=== PATIENT | female | born 1980 | race Caucasian/White ===

== ENCOUNTER 2019-11-27 03:59 | Emergency (ER) | payer OTHER ==
[~2019-11-27] VITALS: Ht 172.7 cm; Wt 81.6 kg
--- NOTE | 2019-11-27 04:10 | NUR ---
PT AAOX4. BIB SELF C/O RUQ PAIN X3 DAYS. PT STATING SHE HAS PAIN WHEN SHE INHALES. NO ACUTE DISTRESS NOTED. VSS.
[2019-11-27] MEDS ORDERED: HYDROMORPHONE 1 MG/1 ML DISP.SYRIN ONE (04:12)
[2019-11-27] MEDS ORDERED: ONDANSETRON HCL/PF 4 MG/2 ML VIAL ONE (04:16)
--- NOTE | 2019-11-27 04:16 | NUR ---
LINE ESTABLISHED ON RAC 20G, LABS DRAWN AND SENT TO LAB
[2019-11-27] MEDS ORDERED: IV NS 0.9% 1,000 ML IV ONE (04:30)
[2019-11-27] MEDS ORDERED: ONDANSETRON HCL/PF 4 MG/2 ML VIAL IV ONE (04:30)
[2019-11-27] MEDS ORDERED: HYDROMORPHONE INJ 0.5 MG/0.5 ML SYRINGE IV ONE (04:30)
--- NOTE | 2019-11-27 04:30 | NUR ---
AWAITING URINE SAMPLE
[2019-11-27 04:40] LABS: BASOPHILS % (AUTO) 0.3 % (0.0-2.0); EOSINOPHILS % (AUTO) 0.2 % (0.0-6.0); HEMATOCRIT 46 % (33-45); HEMOGLOBIN 15.4 g/dL (11.5-14.8); LYMPHOCYTES # (AUTO) 1.2 /CMM (0.8-4.8); MEAN CORPUSCULAR HGB CONC 34 g/dl (31.0-36.0); MEAN CORPUSCULAR VOLUME 90 fL (82-100); MONOCYTES # (AUTO) 0.9 /CMM (0.1-1.30); NEUTROPHILS % (AUTO) 85.5 % (43.0-81.0); PLATELET COUNT (AUTO) 303 /CMM (150-450); RED BLOOD CELL COUNT(AUTO) 5.05 MIL/uL (4.0-5.2); WHITE BLOOD COUNT (AUTO) 15.2 K/uL (4.3-11.0)
--- NOTE | 2019-11-27 04:51 | NUR ---
PT SIGNED WAIVER . RADIOLOGY MADE AWARE T OPROCEED WITH THE CT.
[2019-11-27 04:54] LABS: ALBUMIN 3.7 g/dL (3.4-5.0); BILIRUBIN,DIRECT 0.5 mg/dL (0.0-0.2); BILIRUBIN,TOTAL 1.9 mg/dL (0.2-1.0); CALCIUM, SERUM 8.9 mg/dL (8.5-10.1); CREATININE 0.9 mg/dL (0.6-1.3); POTASSIUM 3.8 mmol/L (3.5-5.1); TOTAL PROTEIN, SERUM 8.2 g/dL (6.4-8.2)
--- NOTE | 2019-11-27 04:59 | NUR ---
BROUGHT TO CT
--- NOTE | 2019-11-27 05:08 | NUR ---
BOUGHT BACK FROM CT
--- NOTE | 2019-11-27 05:17 | NUR ---
URINE COLLECTED AND SENT TO LAB
[2019-11-27 05:19] LABS: APPEARANCE,URINE Slightly Cloudy (CLEAR); BILIRUBIN,URINE SMALL (NEGATIVE); BLOOD, URINE Negative Ery/uL (NEGATIVE); COLOR,URINE Yellow (YELLOW); KETONES,URINE Negative (NEGATIVE); LEUKOCYTE ESTERASE ,URINE Small (NEGATIVE); NITRITE, URINE Negative (NEGATIVE); PROTEIN,URINE 100 mg/dl (NEGATIVE); UGLUCOSE Negative (NEGATIVE)
[2019-11-27 05:33] LABS: BACTERIA,URINE None seen /HPF (None Seen); RBC,URINE 81-100 /HPF (0-2); SQUAMOUS EPITHELIAL CELL,UR Many /HPF (None Seen)
[2019-11-27 05:34] LABS: HYALINE CASTS, URINE Few /LPF (None Seen)
--- NOTE | 2019-11-27 06:14 | NUR ---
US AT BEDSIDE
--- NOTE | 2019-11-27 06:47 | NUR ---
CALLED LAB FOR COVID SWAB
--- NOTE | 2019-11-27 07:06 | NUR ---
AWAITING COVID SWAB
--- NOTE | 2019-11-27 07:13 | NUR ---
Duc zarco in EDM - 11/27/19 at 0733 by KAROLINA Patient discharged to home in stable condition. Written and verbal after care instructions given. Patient verbalizes understanding of instruction and RX. Pt ambulated with steady gait. Pt told to idalia.
--- NOTE | 2019-11-27 07:13 | NUR ---
IV removed. Catheter intact and site benign. Pressure and 4x4 applied to site. No bleeding noted.
--- NOTE | 2019-11-27 07:13 | NUR ---
RANI SENT TO LAB
[2019-11-27 07:14] VITALS: BP 129/81
--- NOTE | 2019-11-27 07:33 | NUR ---
pt refused to sign discharge papers, vss. LUEVANO aware.
--- NOTE | 2019-11-28 01:37 | NUR ---
PT NEGATIVE COVID
== END 2019-11-27 08:09 | disposition home or self-care (01) ==
LOC: ER 03:59
DX: K52.9 Noninfective gastroenteritis and colitis, unspecified (principal); R10.11 Right upper quadrant pain; R91.8 Other nonspecific abnormal finding of lung field; Z90.49 Acquired absence of other specified parts of digestive tract; Z87.442 Personal history of urinary calculi; F98.8 Other specified behavioral and emotional disorders with onset usually occurring in childhood and adolescence; Z20.828 Contact with and (suspected) exposure to other viral communicable diseases
CPT/HCPCS: 36415; 74176; 76705; 80048; 80076; 81001; 83690; 84703; 85025; 87086; 96361; 96374; 96375; 99285; C9803; J1170; J2405; J7030; U0003; 81000-TC